=== PATIENT | female | born 1945 | race Caucasian/White ===

== ENCOUNTER → 2016-11-14 | Outpatient (CLI) | payer MEDICARE, BC ==
[~2016-11-14] MED LIST: ESTR1TAB16 PO; MAXIDE PO; MAXZ25 PO; PREG50CA PO
--- NOTE | 2016-11-15 21:35 | HKNOTE ---
DATE OF SERVICE: 11/14/2016 The patient comes in complaining of pain in the left hip. She requests a repeat cortisone injection into the trochanteric area. The problems with the right knee continue unchanged (see the list of complaints about the knee on last visit's notes). PHYSICAL EXAMINATION: The patient has classic trochanteric bursitis of the left hip. Examination of the right knee shows some laxity of the medial and lateral collateral ligaments. Ful l range of motion. Extension is 0 (i.e., no hyperextension). MANAGEMENT: Under sterile conditions, given injection of 2 mL of Kenalog with 6 mL of 2% lidocaine into the left trochanteric bursa. I recommended to her that she seek a consultation with Dr. Jose Alberto Felix at [facility] for an evaluation of her right knee. Note that at surgery her ligaments were very lax, and we were shocked when the flexion and extension gaps widened several times during the operation. We ended up installing a very thick plastic insert. Dictated By: KASEY MIMS/RAJESH Conf#: [id number] DID#: [id number]
== END | disposition home or self-care (01) ==
LOC: HKI 15:27
DX: M70.62 Trochanteric bursitis, left hip (principal)
CPT/HCPCS: 20610; G0463

== ENCOUNTER → 2017-06-05 | Outpatient (CLI) | END | disposition home or self-care (01) ==

== ENCOUNTER → 2017-07-25 | Outpatient (CLI) | END | disposition home or self-care (01) ==

== ENCOUNTER → 2017-11-22 | Outpatient (CLI) | END | disposition home or self-care (01) ==

== ENCOUNTER 2018-10-25 04:31 | Emergency (ER) | payer MEDICARE, BC ==
[~2018-10-25] VITALS: Ht 152.4 cm; Wt 89.7 kg
[2018-10-25 04:38] VITALS: Ht 152.4 cm; Wt 89.7 kg
[2018-10-25] MEDS ORDERED: ONDANSETRON (ODT) 4 MG TAB ODT STA (04:59)
[2018-10-25] MEDS ORDERED: morphine LIQ (10 MG/5 ML) CUP PO ONE (05:00)
--- NOTE | 2018-10-25 05:57 | ERD ---
ER Documentation Chief Complaint Chief Complaint fell backwards 2 nights ago, c/o mid back pain HPI This is a 72-year-old female who presents for evaluation of left-sided back pain, that occurred 2 nights ago. She had a hematoma over her left posterior back, she is been taking Motrin for pain. Otherwise she denies shortness of breath, she had no other injuries, she has no nausea or vomiting. She denies head trauma, she is not on blood thinners. ROS All systems reviewed and are negative except as per history of present illness. Medications Home Meds Reported Medications Triamterene/Hctz* (Maxzide (37.5-25)*) 1 Each Tablet, 1 EACH PO DAILY, TAB 06/02/15 Pregabalin* (Lyrica*) 50 Mg Capsule, 50 MG PO, CAP 06/02/15 Pregabalin* (Lyrica*) 50 Mg Capsule, 50 MG PO HS 03/29/11 Triamterene/Hctz (Maxzide (75/50)) 1 Tab Tab, 1 TAB PO DAILY TAKES 1/2 TAB DAILY 03/29/11 Estrogen,Conj-Medroxyprogest Acet (Premphase) 0.625 ( 14 ) Tablet, 0.625 ( PO DAILY TAKES 1/2 TAB DAILY. 03/29/11 Allergies Allergies: Coded Allergies: Penicillins (Verified Allergy, Unknown, 06/02/15) ciprofloxacin (Verified Allergy, Unknown, 06/02/15) Soap (Verified Adverse Reaction, Unknown, RASH, 06/02/15) Sulfa (Sulfonamide Antibiotics) (Verified Adverse Reaction, Unknown, 06/02/15) codeine (Verified Adverse Reaction, Unknown, 06/02/15) N/V hydromorphone (Verified Adverse Reaction, Unknown, HYPOTENSION, 06/02/15) povidone-iodine (Verified Adverse Reaction, Unknown, RASH, 06/02/15) tramadol (Verified Adverse Reaction, Unknown, 06/02/15) N/V Uncoded Allergies: SULFA (Adverse Reaction, Unknown, 03/29/11) PMhx/Soc History of Surgery: Yes (L TKR, R ankle reconstruction, C/S fusion/lami) Anesthesia Reaction: No Hx Neurological Disorder: No Hx Respiratory Disorders: No Hx Psychiatric Problems: No Hx Miscellaneous Medical Probl: Yes (OA, sciatica, GERD, obesity, B LE edema) Hx Alcohol Use: No Hx Substance Use: No Hx Tobacco Use: No Smoking Status: Never smoker Physical Exam Vitals Vital Signs Date Temp Pulse Resp B/P (MAP) Pulse Ox O2 O2 Flow FiO2 Time Delivery Rate 10/25/18 98.6 79 18 187/88 97 04:38 (121) Physical Exam Const: Well-developed, well-nourished nontoxic Head: Atraumatic Eyes: Normal Conjunctiva ENT: Normal External Ears, Nose and Mouth. Neck: Full range of motion. No meningismus. Resp: Clear to auscultation bilaterally, no wheezes rales or rhonchi Cardio: Regular rate and rhythm, no murmurs Abd: Soft, non tender, non distended. Normal bowel sounds Skin: No petechiae or rashes Back: No midline or flank tenderness. There is a superficial hematoma noted over lateral left thoracic spine, there is otherwise no step-off, no deformities and no midline tenderness Ext: No cyanosis, or edema Neur: Awake and alert Psych: Normal Mood and Affect Results 24 hrs Current Medications Medications Dose Sig/Anegla Start Time Status Last (Trade) Ordered Route PRN Stop Time Admin Dose Reason Admin Morphine 10 mg ONCE ONCE 10/25/18 DC 10/25/18 Sulfate PO 05:00 10/25/18 05:06 (morphine) 05:01 Ondansetron 8 mg ONCE STAT 10/25/18 DC 10/25/18 HCl (Zofran ODT 04:59 10/25/18 05:07 Odt) 05:01 Procedures/MDM Is a 72-year-old female presents for evaluation of back pain, on exam, patient well-appearing nontoxic, her only evidence of trauma is a superficial hematoma over her thoracic spine. She had no neurovascular deficits, x-ray was done to evaluate for rib fractures, there was no clear pneumothorax on my evaluation. She had no melena line tenderness, I have very low suspicion for an acute lumbar spine fracture. Radiology interpretation is currently pending, if negative patient can likely be discharged home. Departure Diagnosis: Primary Impression: Back pain Back pain location: back pain in unspecified location Chronicity: unspecified Back pain laterality: unspecified Qualified Codes: M54.9 - Dorsalgia, unspecified Condition: Stable ANUJA BARCLAY MD Oct 25, 2018 05:57
[2018-10-25] MEDS ORDERED: OMEP20CA16 PO (06:17)
[2018-10-25] MEDS ORDERED: IBUP-1982 PO (06:17)
[2018-10-25 06:48] VITALS: BP 136/74; PULSE 72; RESP 18
[2018-10-25] MEDS ORDERED: MORP10DI10 SL (07:04)
== END 2018-10-25 06:49 | disposition home or self-care (01) ==
LOC: E/R 04:31
DX: S30.0XXA Contusion of lower back and pelvis, initial encounter (principal); M54.9 Dorsalgia, unspecified; W18.39XA Other fall on same level, initial encounter; Y92.9 Unspecified place or not applicable
CPT/HCPCS: 71045; 72100